=== PATIENT | female | born 1955 | race Caucasian/White ===

== ENCOUNTER 2017-11-20 07:27 | Day surgery (SDC) | payer BC ==
[~2017-11-20] VITALS: Ht 154.9 cm; Wt 51.7 kg
[2017-11-20] MEDS ORDERED: DEXAMETHASONE SOD PHOSPHATE 4 MG/ML VIAL IVP ONE (11:45)
[2017-11-20] MEDS ORDERED: PROPOFOL 200MG/ 20ML VIAL (DIPRIVAN) IV ONE (11:45)
[2017-11-20] MEDS ORDERED: IBUPROFEN 800 MG TABLET PO PRN (11:45)
[2017-11-20] MEDS ORDERED: LR 1,000 ML IV.SOLN IV ONE (11:45)
[2017-11-20] MEDS ORDERED: KETOROLAC TROMETHAMINE 30 MG VIAL IVP ONE ×2 (11:45→12:00)
[2017-11-20] MEDS ORDERED: ONDANSETRON HCL 4 MG/2 ML VIAL IVP ONE ×2 (11:45→12:00)
[2017-11-20] MEDS ORDERED: OXYCODONE/ACETAMINOPHEN 5-325 TABLET PO PRN ×2 (11:45)
[2017-11-20] MEDS ORDERED: MIDAZOLAM HCL 5 MG/ML VIAL (VERSED) IV ONE (11:45)
[2017-11-20] MEDS ORDERED: ONDANSETRON HCL 4 MG/2 ML VIAL IVP PRN (11:45)
[2017-11-20] MEDS ORDERED: LIDOCAINE 1% 10 MG/ML, 20 ML MDV INJ ONE (11:45)
[2017-11-20] MEDS ORDERED: NS IRRIG SOLN 1000 ML IR ONE (11:45)
[2017-11-20] MEDS ORDERED: SEVOFLURANE 15 MIN GAS INH ONE (11:45)
[2017-11-20] MEDS ORDERED: fentaNYL CITRATE/PF 100 MCG/2 ML AMP IVP ONE (11:45)
[2017-11-20] MEDS ORDERED: MORPHINE 4 MG/ML INJ. SYRINGE IVP PRN (12:00)
[2017-11-20] MEDS ORDERED: fentaNYL CITRATE/PF 100 MCG/2 ML AMP IVP PRN (12:00)
[2017-11-20] MEDS ORDERED: NALOXONE HCL 0.4 MG/ML AMP (NARCAN) IVP ONE (12:00)
[2017-11-20] MEDS ORDERED: MIDAZOLAM HCL 5 MG/5 ML VIAL IVP PRN (12:00)
[2017-11-20] MEDS ORDERED: MEPERIDINE HCL/PF 25 MG/ML DISP.SYRIN IVP PRN (12:00)
[2017-11-20] MEDS ORDERED: ACETAMINOPHEN 325 MG TABLET PO ONE (12:45)
[2017-11-20 12:46] VITALS: BP_SYST 101
[2017-11-20] MEDS ORDERED: ACETAMINOPHEN 325 MG TABLET ONE (12:52)
== END 2017-11-20 13:45 | disposition home or self-care (01) ==
LOC: SDS 07:27 → SMU 07:27 → SDS 13:45
PROVIDERS: ATTEND Obstetrics & Gynecology
DX: N95.0 Postmenopausal bleeding (principal); Z98.890 Other specified postprocedural states; Z80.0 Family history of malignant neoplasm of digestive organs
CPT/HCPCS: 58558; 88305; J1100; J1885; J2001; J2250; J2405; J2704; J3010; J7120